=== PATIENT | male | born 1995 | race American Indian/Alaskan Native ===

== ENCOUNTER 2016-11-22 09:32 | Emergency (ER) | payer SELFPAY ==
--- NOTE | 2016-11-22 10:48 | Emergency Department Report ---
Chief Complaint: Nausea/Vomiting/Diarrhea Stated Complaint: STOMACH PAIN/VOMITING DIARRHEA/HEADACHE Time Seen by Provider: 11/22/16 10:44 - HPI History of Present Illness: Patient here complaining in of nausea vomiting and diarrhea and abdominal pain 10 out of 10 to lower abdomen. He came by ambulance. He said been going on for 5 days. Patient thinks he has food poisoning our on-call present. He said he had 1 beer and a shot of liquor 5 days ago and ate [place]isw[place]ili food and after he ate the Kisw[place] food that's when he started vomiting or diarrhea. Reports abdominal pain as cramping. Denies any urinary burning frequency or urgency. Denies any fever or chills. Denies any blood in urine. - ROS Review of Systems: All systems are negative unless stated in HPI above. - Exam Vital Signs: Vital Signs 11/22/16 10:21 Temperature 99.1 F Pulse Rate 88 Blood Pressure 123/92 O2 Sat by Pulse 99 Oximetry Physical Exam: General: This is a 21-year-old male well-nourished well-developed and nontoxic in appearance. Abdomen: Tender to palpate in lower abdominal quadrants with positive guarding and rebound tenderness. Normal bowel sounds and no CVA tenderness MSE screening note: Focused history and physical exam performed. Due to findings the following was ordered:see mdm ED Medical Decision Making - Medical Decision Making Medical decision making: Patient seen by provider in triage area. Appropriate protocol activated and patient to main ED to be seen by physician. ED Disposition for MSE Condition: Stable
[2016-11-22 11:07] LABS: Hematocrit 49.6 % (35.5-45.6); Hemoglobin 16.5 gm/dl (11.8-15.2); Mean Corpuscular HGB Conc 33 % (32-34); Mean Corpuscular Hemoglobin 31 pg (28-32); Mean Corpuscular Volume 93 fl (84-94); Platelet Count 252 K/mm3 (140-440); Red Blood Count 5.31 M/mm3 (3.65-5.03); Red Cell Distribution Width 13.4 % (13.2-15.2); White Blood Count 6.5 K/mm3 (4.5-11.0)
[2016-11-22 11:22] LABS: Alanine Aminotransferase 14 units/L (7-56); Albumin 4.8 g/dL (3.9-5); Albumin/Globulin Ratio 1.2 %; Alkaline Phosphatase 87 units/L (35-129); Amylase 54 units/L (27-131); Anion Gap 21 mmol/L; BUN/Creatinine Ratio 10.76; Bilirubin,Total 0.4 mg/dL (0.1-1.2); Blood Urea Nitrogen 14 mg/dL (9-20); Calcium 9.9 mg/dL (8.4-10.2); Carbon Dioxide 26 mmol/L (22-30); Chloride 96.2 mmol/L (98-107); Glucose 94 mg/dL (75-100); Lipase 21 units/L (13-60); Potassium 3.9 mmol/L (3.6-5.0); Sodium 139 mmol/L (137-145); Total Protein 8.7 g/dL (6.3-8.2)
[2016-11-22 12:18] LABS: Blastocytes % (Manual) 0 %
[2016-11-22 12:20] LABS: Anisocytosis RARE; Diff Status Complete; Platelet Estimate Consistent w Auto
[2016-11-22] MEDS ORDERED: NOVOLOG SUB-Q ONE (13:51)
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
[2016-11-23 00:15] VITALS: BP 129/61
== END 2016-11-23 00:23 | disposition home or self-care (01) ==
LOC: ED 09:32
DX: R11.2 Nausea with vomiting, unspecified (principal); R19.7 Diarrhea, unspecified; R10.9 Unspecified abdominal pain; F17.200 Nicotine dependence, unspecified, uncomplicated
CPT/HCPCS: 36415; 80053; 82150; 82962; 83690; 85007; 85025; 99284; J1815